=== PATIENT | female | born 1985 | race Caucasian/White ===

== ENCOUNTER 2016-10-30 08:57 | Emergency (ER) | payer SELFPAY ==
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
[2016-10-30 10:54] VITALS: BP 127/72
== END 2016-10-30 10:57 | disposition home or self-care (01) ==
LOC: UCCORT 08:57
DX: S40.011A Contusion of right shoulder, initial encounter (principal); V86.59XA Driver of other special all-terrain or other off-road motor vehicle injured in nontraffic accident, initial encounter; Y93.89 Activity, other specified; Y92.9 Unspecified place or not applicable; Z88.1 Allergy status to other antibiotic agents; R51 Headache; F12.90 Cannabis use, unspecified, uncomplicated; F17.210 Nicotine dependence, cigarettes, uncomplicated
CPT/HCPCS: 99212; G0463

== ENCOUNTER 2016-11-10 10:06 | Emergency (ER) | payer SELFPAY ==
--- NOTE | 2016-11-10 11:42 | UC ---
Shoulder Pain HPI - HPI Summary HPI Summary: 31 YEAR OLD FEMALE PRESENTS FOR A FOLLOW UP OF RIGHT SHOULDER PAIN. - History of Current Complaint Stated Complaint: RIGHT SHOULDER INJURY Time Seen by Provider: 11/10/16 11:41 Hx Obtained From: Patient Hx Last Menstrual Period: 10/11/16 Onset/Duration: Lasting Days Timing: Constant Severity Initially: Moderate Severity Currently: Moderate Location Of Pain: Radiates To - RIGHT NECK Pain Scale Used: 0-10 Numeric - 7 - Allergies/Home Medications Allergies/Adverse Reactions: Allergies Allergy/AdvReac Type Severity Reaction Status Date / Time Amoxicillin Allergy Hives Verified 11/10/16 11:53 PMH/Surg Hx/FS Hx/Imm Hx - Surgical History Surgical History: Yes Surgery Procedure, Year, and Place: T&A - Family History Known Family History: Positive: Cardiac Disease, Hypertension - Social History Alcohol Use: Weekly Alcohol Amount: 30 drinks per week Substance Use Type: Marijuana Substance Use Comment - Amount & Last Used: 10/29/16 Smoking Status (MU): Light Every Day Tobacco Smoker Type: Cigarettes Amount Used/How Often: 1/2 pack day Have You Smoked in the Last Year: Yes Household Exposure Type: Cigarettes Review of Systems Constitutional: Negative Skin: Negative Eyes: Negative ENT: Negative Respiratory: Negative Cardiovascular: Negative Gastrointestinal: Negative Genitourinary: Negative Motor: Negative Neurovascular: Negative Musculoskeletal: Myalgia, Other: - RIGHT SHOULDER PAIN Neurological: Negative Psychological: Negative All Other Systems Reviewed And Are Negative: Yes Physical Exam Triage Information Reviewed: Yes Eye Exam: Normal ENT Exam: Normal Dental Exam: Normal Neck exam: Normal Neck: Positive: 1 Respiratory Exam: Normal Cardiovascular Exam: Normal Abdominal Exam: Normal Musculoskeletal: Positive: Strength Limited @, ROM Limited @, Other: - RIGHT SHOULDER PAIN Neurological Exam: Normal Psychological Exam: Normal Skin Exam: Normal Shoulder Course/Dx - Differential Dx/Diagnosis Provider Diagnoses: RIGHT SHOULDER PAIN. RIGHT SHOULDER IMPINGEMENT Discharge - Discharge Plan Condition: Stable Disposition: HOME Prescriptions: Meloxicam(NF) [Mobic(NF)] 15 mg PO DAILY #30 tab Methocarbamol TAB* [Robaxin 500 MG TAB*] 500 mg PO TID PRN #30 tab PRN Reason: Spasms Patient Education Materials: Shoulder Pain (ED) Forms: *Work Release Referrals: Rolan Valero MD [Medical Doctor] - VANDANA Chaparro [Primary Care Provider] -
[2016-11-10 12:18] VITALS: BP 138/72
== END 2016-11-10 12:15 | disposition home or self-care (01) ==
LOC: UCCORT 10:06
DX: M25.511 Pain in right shoulder (principal); M75.41 Impingement syndrome of right shoulder; Z88.1 Allergy status to other antibiotic agents; F12.90 Cannabis use, unspecified, uncomplicated; F17.210 Nicotine dependence, cigarettes, uncomplicated
CPT/HCPCS: 99212; G0463

== ENCOUNTER 2017-11-25 11:58 | Emergency (ER) | payer OTHER ==
[2017-11-25 12:38] VITALS: BP 132/55
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
[2017-11-25] MEDS ORDERED: Lidocaine 1%* 5 ML VIAL ONE (12:52)
[2017-11-25] MEDS ORDERED: Lidocaine 1%* 5 ML VIAL INJ ONE (12:52)
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
== END 2017-11-25 13:38 | disposition home or self-care (01) ==
LOC: UCCORT 11:58
DX: W25.XXXA Contact with sharp glass, initial encounter (principal); Y93.89 Activity, other specified; Y92.9 Unspecified place or not applicable; S61.411A Laceration without foreign body of right hand, initial encounter; Z88.0 Allergy status to penicillin; F17.210 Nicotine dependence, cigarettes, uncomplicated
CPT/HCPCS: 12002; 99211; G0463

== ENCOUNTER 2017-11-29 09:39 | Emergency (ER) | payer OTHER ==
[2017-11-29 10:11] VITALS: BP 148/87
--- NOTE | 2017-11-29 11:04 | UC ---
HPI Wound/Suture Re-check - HPI Summary HPI Summary: 32-year-old female presents with right hand pain, swelling and reports of purulent discharge from laceration. She was initially seen at this facility on 11/25/2017 after putting her hand through a glass window. She states for the past 2 days she has noticed some increased pain in her hand especially with movement as well as some localized redness around the wound and this morning had some drainage from the wound as well. She denies fever, chills, loss of function of her hand, numbness or tingling. - History Of Current Complaint Chief Complaint: UCSkin Stated Complaint: SUTURE INFECTION Time Seen by Provider: 11/29/17 10:24 Hx Obtained From: Patient Hx Last Menstrual Period: unknown Onset/Duration: Gradual Onset Surgical Site: Laceration right dorsal hand Severity: Mild Pain Intensity: 4 Procedure Type: laceration repair Surgery Date: 11/25/17 Hands: 1 - curved linear laceration well approximated with sutures - Allergies/Home Medications Allergies/Adverse Reactions: Allergies Allergy/AdvReac Type Severity Reaction Status Date / Time amoxicillin Allergy Diarrhea Verified 11/29/17 10:06 and Hives Penicillins Allergy Diarrhea Verified 11/29/17 10:06 and Hives PMH/Surg Hx/FS Hx/Imm Hx - Additional Past Medical History Additional PMH: Noncontributory Previously Healthy: Yes - Surgical History Surgical History: Yes Surgery Procedure, Year, and Place: Andoidectomy (?Tonsillectomy), ~ [place] - Family History Known Family History: Positive: Cardiac Disease, Hypertension - Social History Occupation: Employed Full-time Lives: With Family Alcohol Use: Weekly Alcohol Amount: per week Substance Use Type: Marijuana Substance Use Comment - Amount & Last Used: Daily Smoking Status (MU): Heavy Every Day Tobacco Smoker Type: Cigarettes Amount Used/How Often: 1/2 PPD Length of Time of Smoking/Using Tobacco: Since Age 20 Have You Smoked in the Last Year: Yes Household Exposure Type: Cigarettes - Immunization History Most Recent Tetanus Shot: 2017 Review of Systems Constitutional: Negative Skin: Other - See history of present illness Neurovascular: Negative Musculoskeletal: Negative Neurological: Negative Is Patient Immunocompromised?: No All Other Systems Reviewed And Are Negative: Yes Physical Exam Triage Information Reviewed: Yes Appearance: Well-Appearing, No Pain Distress, Well-Nourished Vital Signs: Initial Vital Signs Temp 98.8 F 11/29/17 10:07 Pulse 72 11/29/17 10:07 Resp 16 11/29/17 10:07 BP 148/87 11/29/17 10:07 Pulse Ox 100 11/29/17 10:07 Vital Signs Reviewed: Yes Respiratory: Positive: No respiratory distress Cardiovascular: Positive: Pulses Normal, Brisk Capillary Refill Musculoskeletal: Positive: Strength Intact, ROM Intact Neurological: Positive: Alert, Other: - Sensation intact distally Skin: Positive: Other - Curved linear laceration to the dorsal right hand that is well approximated with sutures. There is some localized erythema around the wound margins with mild edema. No induration, fluctuance, or drainage noted at time of exam. Course/Dx - Course Course Of Treatment: 32-year-old female with history of laceration to dorsal right hand which occurred on 11/25/2017 when she put her hand through a glass window. Initially seen at this facility. X-rays of the hand were performed in no foreign body or acute process was noted. Patient reporting some increased pain in the right hand with some redness and discharge from the wound. Denies fever or chills. On exam patient has some localized erythema around the margins of the wound with some mild swelling. Her strength is intact with good range of motion to all digits of that hand. Sensation was intact. No induration, fluctuance, or drainage was noted on exam. Notes in x-rays from her previous visit were all reviewed. I suspect that the localized pain and swelling likely represents normal inflammation from the healing process however with the patient's report of some purulent drainage from the wound I will go ahead and cover her with a course of Keflex 5 days. Recommend continued wound care and [id number] analgesics as needed for pain. She is to follow-up for suture removal in 8-10 days. - Differential Dx - Laceration/Wound Differential Diagnoses: Healing Wound Provider Diagnoses: Wound infection Discharge - Sign-Out/Discharge Documenting (check all that apply): Patient Departure All imaging exams completed and their final reports reviewed: No Studies - Discharge Plan Condition: Stable Disposition: HOME Prescriptions: cephALEXin [Keflex] 500 mg PO TID #15 capsule Patient Education Materials: Wound Infection (ED) Forms: *Work Release Referrals: Stella Berg MD [Primary Care Provider] - If Needed Additional Instructions: Start cephalexin 500 mg one By mouth every 8 hours for 5 days. Continue taking [id number] acetaminophen (Tylenol) or ibuprofen (Advil, Motrin) according to directions as needed for pain. Continued to wash the wound gently with soap and water at least once daily. Keep wound covered with a gauze dressing. This should be changed at least once a day or any time the dressing becomes wet or soiled. Follow-up here or with your primary care provider as previously discussed for suture removal. Your blood pressure in the clinic tonight was mildly elevated. It is recommended that you follow up with your primary care provider to have this rechecked. - Billing Disposition and Condition Condition: STABLE Disposition: Home
== END 2017-11-29 11:15 | disposition home or self-care (01) ==
LOC: UCCORT 09:39
DX: S61.411D Laceration without foreign body of right hand, subsequent encounter (principal); L08.9 Local infection of the skin and subcutaneous tissue, unspecified; W22.09XD Striking against other stationary object, subsequent encounter; F17.210 Nicotine dependence, cigarettes, uncomplicated
CPT/HCPCS: 99212; G0463